=== PATIENT | male | born 1980 | race American Indian/Alaskan Native ===

== ENCOUNTER 2020-09-25 20:35 | Emergency (ER) | payer SELFPAY ==
[2020-09-25 23:39] LABS: Bacteria,Urine 1+ /HPF (Negative); Bilirubin,Urine NEG (Negative); Blood,Urine MOD (Negative); Color,Urine Red (Yellow); Mucus,Urine FEW /HPF; Urobilinogen,Urine < 2.0 mg/dL (<2.0)
[2020-09-25 23:43] LABS: RBC,Urine > 182.0 /HPF (0.0-6.0)
[2020-09-25 23:56] LABS: Basophils # (Auto) 0.1 K/mm3 (0.0-0.1); Basophils % (Auto) 0.8 % (0.0-1.8); Eosinophils # (Auto) 0.1 K/mm3 (0.0-0.4); Eosinophils % (Auto) 0.5 % (0.0-4.3); Hematocrit 38.6 % (35.5-45.6); Hemoglobin 13.2 gm/dl (11.8-15.2); Lymphocytes # (Auto) 1.4 K/mm3 (1.2-5.4); Lymphocytes % (Auto) 10.3 % (13.4-35.0); Mean Corpuscular HGB Conc 34 % (32-34); Mean Corpuscular Volume 79 fl (84-94); Monocytes # (Auto) 0.9 K/mm3 (0.0-0.8); Monocytes % (Auto) 6.7 % (0.0-7.3); Platelet Count 318 K/mm3 (140-440); Red Blood Count 4.92 M/mm3 (3.65-5.03); Red Cell Distribution Width 14.1 % (13.2-15.2)
[2020-09-26 00:17] LABS: Alanine Aminotransferase 14 units/L (7-56); BUN/Creatinine Ratio 12; Blood Urea Nitrogen 16 mg/dL (9-20); Calcium 8.8 mg/dL (8.4-10.2); Hemolysis Index 10
[2020-09-26] MEDS ORDERED: SODIUM CHLORIDE 0.9% 1000 ML 1,000 ML IV ONE (09:35)
[2020-09-26] MEDS ORDERED: INSULIN REGULAR, HUMAN 100 UNITS/1 ML IV ONE (09:35)
--- NOTE | 2020-09-26 09:40 | Emergency Department Report ---
ED Male HPI - General Chief complaint: Abdominal Pain Stated complaint: HIGH BLOOD SUGAR AND BLOOD PRESSURE Time Seen by Provider: 09/26/20 09:21 Source: patient Mode of arrival: Ambulatory Limitations: No Limitations - History of Present Illness Initial comments: 40-year-old male with a past medical history of insulin-dependent diabetes and hypertension presents to the hospital complaining of polyuria and gross hematuria since yesterday. Patient also having intermittent suprapubic crampy pain rated 6/10 in intensity. Patient has been waiting in the ED for approximately 13 hours. He states he had 3 episodes of hematuria yesterday but has since had 2-3 episodes of normal-appearing urine output while waiting to be seen by MD. Patient takes Novolin 70/30 15 units twice daily with last dose yesterday a.m. He is also been out of his lisinopril 10 mg x 1 week and is requesting a refill. Patient denies nausea, vomiting, flank pain, fever, history of penile/abdominal trauma or kidney stones - Related Data Previous Rx's Medication Instructions Recorded Last Taken Type Ibuprofen [Motrin] 800 mg PO Q8HR PRN #20 tablet 09/26/20 Unknown Rx Insulin NPH/Regular [Novolin 70/30] 15 unit SQ BIDDIAB 30 Days ml 09/26/20 Unknown Rx cefUROXime [Ceftin] 500 mg PO Q12H 7 Days tablet 09/26/20 Unknown Rx lisinopriL [Lisinopril] 10 mg PO DAILY #30 tablet 09/26/20 Unknown Rx Allergies Allergy/AdvReac Type Severity Reaction Status Date / Time No Known Allergies Allergy Unverified 09/25/20 22:11 ED Review of Systems ROS: Stated complaint: HIGH BLOOD SUGAR AND BLOOD PRESSURE Other details as noted in HPI Comment: All other systems reviewed and negative ED Past Medical Hx - Past Medical History Previous Medical History?: Yes Hx Hypertension: Yes Hx Diabetes: Yes - Surgical History Past Surgical History?: No - Social History Smoking Status: Current Every Day Smoker Substance Use Type: Marijuana - Medications Home Medications: Home Medications Medication Instructions Recorded Confirmed Last Taken Type Ibuprofen [Motrin] 800 mg PO Q8HR PRN #20 tablet 09/26/20 Unknown Rx Insulin NPH/Regular [Novolin 70/30] 15 unit SQ BIDDIAB 30 Days ml 09/26/20 Unknown Rx cefUROXime [Ceftin] 500 mg PO Q12H 7 Days tablet 09/26/20 Unknown Rx lisinopriL [Lisinopril] 10 mg PO DAILY #30 tablet 09/26/20 Unknown Rx ED Physical Exam - General Limitations: No Limitations ED Course Vital Signs 09/25/20 09/26/20 21:59 10:04 Temperature 98.9 F Pulse Rate 90 82 Respiratory 18 Rate Blood Pressure 160/88 Blood Pressure 175/99 [Left] O2 Sat by Pulse 98 Oximetry ED Medical Decision Making - Lab Data Result diagrams: 09/25/20 22:53 09/25/20 22:53 - Radiology Data Radiology results: report reviewed CT ABDOMEN AND PELVIS WITHOUT CONTRAST INDICATION / CLINICAL INFORMATION: hematuria. TECHNIQUE: Axial CT images were obtained through the abdomen and pelvis without IV contrast. All CT scans at this location are performed using CT dose reduction for ALARA by means of automated exposure control. COMPARISON: None available. FINDINGS: LOWER CHEST: No significant abnormality. LIVER: No significant abnormality. GALLBLADDER: No significant abnormality. BILE DUCTS: No significant abnormality. PANCREAS: No significant abnormality. SPLEEN: No significant abnormality. ADRENALS: No significant abnormality. RIGHT KIDNEY / URETER: Mild hydronephrosis with moderate perinephric stranding, particularly around the inferior pole the right kidney. No hydroureter. No intrarenal or ureteral calculi identified. LEFT KIDNEY / URETER: No significant abnormality. STOMACH / SMALL BOWEL: No significant abnormality. COLON: No significant abnormality. APPENDIX: No significant abnormality. PERITONEUM: No free fluid. No free air. No fluid collection. LYMPH NODES: No significant adenopathy. AORTA / ARTERIES: No significant abnormality. IVC / VEINS: No significant abnormality. URINARY BLADDER: No significant abnormality. REPRODUCTIVE ORGANS: No significant abnormality. ADDITIONAL FINDINGS: None. SKELETAL SYSTEM: No significant abnormality. IMPRESSION: Mild hydronephrosis and perinephric inflammatory stranding around the inferior pole right kidney. No intrarenal or ureteral calculi are identified. Findings could reflect recently passed right ureteral calculus or urinary tract infection. Recommend correlation with lab findings and urinalysis. - Medical Decision Making 40-year-old male with hyperglycemia secondary to medication noncompliance without signs of DKA. Repeat glucose without intervention showed dramatic improvement in patient treated with additional IV insulin. UA positive for hematuria as well as possible infection with CT findings of possible recently passed stone versus infection without current stone identified. No signs of septic or septic shock at this time. Patient has had normal urine output during ED stay patient provided p.o. Macrobid and IV Toradol in the ED will be discharged on Ceftin and lisinopril referral as requested. PMD follow-up recommended. Patient also counseled on the importance of receiving Covid shot given his risk factors Critical Care Time: No Critical care attestation.: If time is entered above; I have spent that time in minutes in the direct care of this critically ill patient, excluding procedure time. ED Disposition Clinical Impression: Hematuria, UTI (urinary tract infection), Uncontrolled diabetes mellitus, Chronic hypertension, Noncompliance with medication regimen Disposition: DC- TO HOME OR SELFCARE Is pt being admited?: No Does the pt Need Aspirin: No Condition: Stable Instructions: Diabetes Mellitus Type 2 in Adults (ED), Hypertension (ED), Insulin Treatment for Diabetes Mellitus, Hypertension, Adult, [id number], Hematuria, Adult, Urinary Tract Infection, Adult Additional Instructions: Take the medication as prescribed. Follow-up with your doctor or doctor/clinic provided. Return if symptoms worsen as indicated by your discharge instructions. Your CAT scan shows that you might have passed a kidney stone on the right side however, there is not a kidney stone currently present on your CAT scan. Follow-up with your primary care doctor and urologist. Prescriptions: cefUROXime [Ceftin] 500 mg PO Q12H 7 Days tablet lisinopriL [Lisinopril] 10 mg PO DAILY #30 tablet Ibuprofen [Motrin] 800 mg PO Q8HR PRN #20 tablet PRN Reason: Pain , Severe (7-10) Insulin NPH/Regular [Novolin 70/30] 15 unit SQ BIDDIAB 30 Days ml Referrals: EVA PERDOMO MD [Primary Care Provider] - 3-5 Days [facility] [Provider Group] - 3-5 Days ROSA MONTE MD [Staff Physician] - 3-5 Days
[2020-09-26] MEDS ORDERED: cefTRIAXone/NS 1 GM/50 ML 1 GM/50 ML BAG IV ONE (09:41)
[2020-09-26] MEDS ORDERED: LISINOPRIL 10 MG TAB PO ONE ×2 (09:41→09:52)
[2020-09-26] MEDS ORDERED: KETOROLAC 30 MG/1 ML INJ IV ONE ×2 (09:43→10:09)
[2020-09-26] MEDS ORDERED: NITROFURANTOIN MONOHYD/M-CRYST 100 MG CAP PO ONE (09:52)
[2020-09-26] MEDS ORDERED: INSULIN REGULAR, HUMAN 100 UNITS/1 ML SUB-Q ONE (09:52)
[2020-09-26] MEDS ORDERED: KETOROLAC 30 MG/1 ML INJ ONE (09:57)
[2020-09-26] MEDS ORDERED: SODIUM CHLORIDE 0.9% 1000 ML 0 ML ONE (09:58)
--- NOTE | 2020-09-26 10:35 | Cat Scan Report ---
CT ABDOMEN AND PELVIS WITHOUT CONTRAST INDICATION / CLINICAL INFORMATION: hematuria. TECHNIQUE: Axial CT images were obtained through the abdomen and pelvis without IV contrast. All CT scans at this location are performed using CT dose reduction for ALARA by means of automated exposure control. COMPARISON: None available. FINDINGS: LOWER CHEST: No significant abnormality. LIVER: No significant abnormality. GALLBLADDER: No significant abnormality. BILE DUCTS: No significant abnormality. PANCREAS: No significant abnormality. SPLEEN: No significant abnormality. ADRENALS: No significant abnormality. RIGHT KIDNEY / URETER: Mild hydronephrosis with moderate perinephric stranding, particularly around t he inferior pole the right kidney. No hydroureter. No intrarenal or ureteral calculi identified. LEFT KIDNEY / URETER: No significant abnormality. STOMACH / SMALL BOWEL: No significant abnormality. COLON: No significant abnormality. APPENDIX: No significant abnormality. PERITONEUM: No free fluid. No free air. No fluid collection. LYMPH NODES: No significant adenopathy. AORTA / ARTERIES: No significant abnormality. IVC / VEINS: No significant abnormality. URINARY BLADDER: No significant abnormality. REPRODUCTIVE ORGANS: No significant abnormality. ADDITIONAL FINDINGS: None. SKELETAL SYSTEM: No significant abnormality. IMPRESSION: Mild hydronephrosis and perinephric inflammatory stranding around the inferior pole right kidney. No intrarenal or ureteral calculi are identified. Findings could reflect recently passed right ureteral calculus or urinary tract infection. Recommend correlation with lab findings and urinalysis. Signer Name: Deni Pabon MD Signed: 09/26/2020 10:31 AM Workstation Name: [id number]
[2020-09-26 12:06] VITALS: BP 145/69
== END 2020-09-26 12:06 | disposition home or self-care (01) ==
LOC: ED 20:35
DX: N39.0 Urinary tract infection, site not specified (principal); R31.9 Hematuria, unspecified; I10 Essential (primary) hypertension; E11.65 Type 2 diabetes mellitus with hyperglycemia; F17.200 Nicotine dependence, unspecified, uncomplicated; F12.90 Cannabis use, unspecified, uncomplicated; Z91.14 Patient's other noncompliance with medication regimen; Z79.899 Other long term (current) drug therapy
CPT/HCPCS: 36415; 74176; 80053; 81001; 82805; 82962; 83735; 85025; 87086; 96372; 96374; 99284; J1885; J1815; J7030